=== PATIENT | female | born 1975 | race Caucasian/White ===

== ENCOUNTER → 2024-03-26 | Outpatient (CLI) | payer OTHER ==
[2024-03-26 11:38] LABS: Basophils # (auto) 0.1 10 ^3/uL (0-0.2); Eosinophils # (auto) 0.1 10 ^3/uL (0-0.8); Lymphocytes # (auto) 2.5 10 ^3/uL (0.4-5.4); Red Blood Cells 4.47 10^6/uL (4.0-5.20)
[2024-03-26 11:39] LABS: Basophils % (auto) 0.6 % (0.0-2.0); Eosinophils % (auto) 0.8 % (0.0-7.0); Hematocrit 33.7 % (36.0-46.0); Hemoglobin 10.6 g/dL (12.2-16.2); Lymphocytes % (auto) 24.9 % (10.0-50.0); Mean Corpuscular Hemoglobin 23.8 pg (28.0-32.0); Mean Corpuscular Hgb Conc. 31.5 g/dL (32.0-36.0); Mean Corpuscular Volume 75.5 fL (80.0-100.0); Monocytes # (auto) 0.4 10 ^3/uL (0-1.3); Monocytes % (auto) 4.2 % (0.0-12.0); Neutrophils # (auto) 6.9 10 ^3/uL (1.6-8.6); Neutrophils % (auto) 69.5 % (37.0-80.0); Platelet Count (auto) 308 10^3/uL (140-450); Red Cell Distribution Width 17.6 % (11.8-14.3); White Blood Cell 9.9 10^3/uL (4.4-10.8)
[2024-03-26 12:30] LABS: Beta HCG, Quantitative < 0.0 mIU/mL (1.5-4.2)
[2024-03-26 12:31] LABS: Follicle Stimulating Hormone 5.28 IU/L (SEE BELOW); Thyroid Stimulating Hormone 2.69 uIU/mL (0.55-4.78)
[2024-03-26 12:32] LABS: Leuteinizing Hormone 4.4 IU/L
[2024-03-26 12:33] LABS: Anion Gap 12 (5-15); Calcium 9.7 mg/dL (8.7-10.4); Carbon Dioxide 20 mmol/L (20-31); Free T4 (Free Thyroxine) 0.93 ng/dL (0.89-1.76); Sodium 143 mmol/L (136-145)
[2024-03-26 12:43] LABS: BUN/Creatinine Ratio 14.1 (10.0-20.0); Blood Urea Nitrogen 10 mg/dL (9-23); Glucose 95 mg/dL (74-106)
[2024-03-26 12:44] LABS: Alkaline Phosphatase 107 U/L (46-116)
[2024-03-26 12:45] LABS: Albumin 4.5 g/dL (3.2-4.8); Aspartate Aminotransferase 14 U/L (13-40)
[2024-03-26 12:46] LABS: Bilirubin, Total 0.5 mg/dL (0.2-1.0); Total Protein 6.9 g/dL (5.7-8.2)
[2024-03-26 12:47] LABS: Alanine Aminotransferase 9 U/L (7-40); Chloride 111 mmol/L (98-107)
== END | disposition home or self-care (01) ==
LOC: LAB 10:53
PROVIDERS: ATTEND Obstetrics & Gynecology
DX: E28.2 Polycystic ovarian syndrome (principal); Z87.42 Personal history of other diseases of the female genital tract
CPT/HCPCS: 36415; 80053; 82626; 82670; 83001; 83002; 83036; 84146; 84402; 84403; 84439; 84443; 84702; 85025

== ENCOUNTER → 2025-01-27 | Outpatient (CLI) | payer BC | END | disposition home or self-care (01) | LOC: LAB 08:28 → EDSTATUS 01-30 12:14 | PROVIDERS: ATTEND Obstetrics & Gynecology | DX: Z01.812 Encounter for preprocedural laboratory examination (principal); N93.9 Abnormal uterine and vaginal bleeding, unspecified | CPT/HCPCS: 86850; 86900; 86901 ==